=== PATIENT | female | born 1960 | race Caucasian/White ===

== ENCOUNTER → 2023-10-23 08:02 | Outpatient (REF) | payer OTHER, SELFPAY | LOC: HWWDC 08:02 | PROVIDERS: ATTENDING PHYSICIAN Nurse Practitioner Adult Health | DX: Z12.31 Encounter for screening mammogram for malignant neoplasm of breast (principal); S16.1XXA Strain of muscle, fascia and tendon at neck level, initial encounter | CPT/HCPCS: 72050; 77063; 77067 ==

== ENCOUNTER → 2024-01-13 07:35 | Outpatient (REF) | payer OTHER, SELFPAY ==
[2024-01-13 10:08] LABS: ALT (SGPT) 49 U/L (0-35); AST (SGOT) 36 U/L (14-36); Albumin 4.7 g/dl (3.5-5.0); Alkaline Phosphatase 69 U/L (38-126); Direct Bilirubin 0.1 mg/dl (0.0-0.4); GGTP 84 U/L (12-43); Total Bilirubin 0.5 mg/dl (0.2-1.3); Total Protein 6.8 g/dl (6.3-8.2)
[2024-01-13 10:24] LABS: INR 0.94; PT 12.5 Sec (11.4-14.6)
[2024-01-13 10:42] LABS: Ferritin 65.4 ng/ml (11.1-264.0)
[2024-01-14 17:51] LABS: Insulin, Random 13 uIU/mL
[2024-01-14 19:16] LABS: Alpha-1-Antitrypsin 131 mg/dL (90-200)
[2024-01-14 23:37] LABS: ANA, IgG Reflex to HEp-2 None Detected (None Detected)
[2024-01-15 00:15] LABS: F-Actin Antibody IgG 6 Units (0-19)
[2024-01-15 00:39] LABS: Hepatitis B Surface Antigen Negative (Negative)
[2024-01-15 00:54] LABS: Hepatitis B Surface Antibody Negative; Hepatitis C Antibody Negative (Negative)
[2024-01-15 01:11] LABS: Hepatitis A Antibody, Total Negative (Negative)
== END ==
LOC: HWLAB 07:35
PROVIDERS: ATTENDING PHYSICIAN Nurse Practitioner Adult Health
DX: K76.0 Fatty (change of) liver, not elsewhere classified (principal); Z01.84 Encounter for antibody response examination
CPT/HCPCS: 36415; 80076; 81256; 82103; 82728; 82977; 83525; 85610; 86015; 86038; 86706; 86708; 86709; 86803; 87340

== ENCOUNTER → 2024-04-12 14:01 | Outpatient (REF) | payer OTHER, SELFPAY | LOC: HWRAD 14:01 | PROVIDERS: ATTENDING PHYSICIAN Nurse Practitioner Adult Health | DX: M25.561 Pain in right knee (principal) | CPT/HCPCS: 73564 ==

== ENCOUNTER → 2024-10-24 08:30 | Outpatient (REF) | payer OTHER, SELFPAY | LOC: HWWDC 08:30 | PROVIDERS: ATTENDING PHYSICIAN Nurse Practitioner Adult Health | DX: Z12.31 Encounter for screening mammogram for malignant neoplasm of breast (principal) | CPT/HCPCS: 77063; 77067 ==

== ENCOUNTER → 2025-02-16 06:46 | Outpatient (REF) | payer MEDICARE, OTHER, SELFPAY ==
[2025-02-16 10:35] LABS: Hematocrit 47.3 % (37.0-47.0); Hemoglobin 15.9 g/dL (12.0-16.0); Mean Corp Hgb Conc. 33.6 g/dL (33.0-37.0); Mean Corpuscular Volume 88.4 fL (81.0-99.0); Nucleated Red Blood Cells % 0 %; Platelet Count 204 10^3/uL (130-400); Red Cell Dist. Width 12.7 % (11.5-14.5)
[2025-02-16 10:53] LABS: Urine Character Clear (Clear)
[2025-02-16 10:55] LABS: ALT (SGPT) 46 U/L (0-35); AST (SGOT) 37 U/L (14-36); Albumin 4.9 g/dl (3.5-5.0); Alkaline Phosphatase 73 U/L (38-126); Blood Urea Nitrogen 20 mg/dl (7-17); Calcium 10.2 mg/dl (8.4-10.2); Carbon Dioxide 30 mmol/L (22-30); Chloride 101 mmol/L (98-107); Glucose 105 mg/dl (70-99); HDL Cholesterol 85 mg/dl; LDL Cholesterol, Calculated 104 mg/dl; Potassium 4.4 mmol/L (3.5-5.1); Sodium 138 mmol/L (135-145); Total Protein 7.9 g/dl (6.3-8.2); Very Low Density Lipoprotein 23 mg/dl (0-30); eGFR > 60.00
[2025-02-16 11:29] LABS: Urine Red Blood Cell 0-2 /HPF (0-2)
[2025-02-16 12:52] LABS: Vitamin D, 25-OH*** 114 ng/mL (30-80)
== END ==
LOC: HWLAB 06:46
PROVIDERS: ATTENDING PHYSICIAN Nurse Practitioner Adult Health
DX: Z00.01 Encounter for general adult medical examination with abnormal findings (principal); E55.9 Vitamin D deficiency, unspecified; E78.00 Pure hypercholesterolemia, unspecified
CPT/HCPCS: 36415; 80053; 80061; 81003; 81015; 82306; 84443; 85025